=== PATIENT | male | born 1940 | race Caucasian/White ===

== ENCOUNTER 2017-03-21 12:16 | Emergency (ER) | payer MEDICARE, OTHER ==
[2017-03-21 12:27] VITALS: BP 142/74
[2017-03-21] MEDS ORDERED: Sodium Chloride 0.9% 10 ML Syringe FLUSH PRN (12:58)
--- NOTE | 2017-03-21 13:46 | CR ---
Pelvis and left hip: AP view of the pelvis was obtained as well as AP and lateral views of the left hip. Angulated intertrochanteric fracture is seen within the left hip. Mild joint space narrowing is seen within both hips, worse on the right side. Disc space narrowing is noted within the lower lumbar spine. Sacroiliac joints are within normal limits. No acute fracture or other abnormality is seen. Impression: 1. Angulated intertrochanteric fracture within the left hip. 2. Degenerative change as noted above. Diagnostic code #3
[2017-03-21] MEDS ORDERED: HYDROmorphone 0.5 MG/0.5 ML Syringe IVPUSH ONE (13:54)
--- NOTE | 2017-03-21 15:13 | EDM.PDOC ---
ED HPI GENERAL MEDICAL PROBLEM - General Chief Complaint: Lower Extremity Injury/Pain Stated Complaint: [facility] Time Seen by Provider: 03/21/17 12:22 Source of Information: Reports: Patient, RN Notes Reviewed - History of Present Illness INITIAL COMMENTS - FREE TEXT/NARRATIVE: 76-year-old male comes in by ambulance for evaluation of severe left hip pain status post fall. 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 He states it was just a three- step difference in height. He thought he was on the first step but actually he was on the second or third so when he stepped down he lost his balance falling onto his left hip. He had severe pain immediately left hip with inability to move the leg at the hip joint without even more severe discomfort. He denies head neck chest back or other pain or injury from this incident. Due to severity of pain and severe anxiety he was given 10 mg morphine and route by parlor maid. The pain on arrival to ED is more tolerable but still severe with any type of motion of the left extremity at the left hip joint. He does have a long standing smoking history having smoked since age 17 which puts him at about 59 years of smoking. However he states of packed now last 2-3 days. He does have somewhat of a chronic cough associated with that. Current chest pain or difficulty breathing. Treatments STORES ASSISTANT: Reports: Other Medication(s) Left Hip Pain Score (Numeric/FACES): 7 - Related Data Allergies Allergy/AdvReac Type Severity Reaction Status Date / Time No Known Allergies Allergy Verified 03/21/17 12:21 Home Meds: Home Meds Multivitamin [Multivitamins] 1 cap PO DAILY 12/05/14 [History] Naproxen Sodium [Aleve] 440 mg PO DAILY 12/05/14 [History] Past Medical History HEENT History: Reports: Hard of Hearing Genitourinary History: Reports: Prostate Disorder Other Musculoskeletal History: back surgery - Past Surgical History HEENT Surgical History: Reports: Eye Surgery GI Surgical History: Reports: Appendectomy Other Musculoskeletal Surgeries/Procedures:: knee pain Social & Family History - Tobacco Use Smoking Status *Q: Current Every Day Smoker Years of Tobacco use: 50 Packs/Tins Daily: 0.6 - Caffeine Use Caffeine Use: Reports: Coffee - Recreational Drug Use Recreational Drug Use: No Review of Systems - Review of Systems Review Of Systems: See Below Constitutional: Denies: Chills, Fever Eyes: Reports: No Symptoms Ears: Reports: No Symptoms Nose: Reports: No Symptoms Mouth/Throat: Reports: No Symptoms Respiratory: Reports: Shortness of Breath (Moderate at the time of his fall). Denies: Pleuritic Chest Pain Cardiovascular: Denies: Chest Pain GI/Abdominal: Denies: Abdominal Pain, Nausea, Vomiting Musculoskeletal: Reports: Joint Pain (Left hip). Denies: Neck Pain, Shoulder Pain, Arm Pain, Back Pain Skin: Reports: No Symptoms Neurological: Denies: Numbness, Tingling, Trouble Speaking, Weakness ED EXAM, GENERAL - Physical Exam Exam: See Below General Appearance: Alert, Mild Distress (Has recently had 10 mg morphine IV in route to the hospital) Eye Exam: Bilateral Eye: PERRL Throat/Mouth: Normal Inspection Head: Atraumatic. No: Facial Swelling Neck: Supple, Full Range of Motion Respiratory/Chest: No Respiratory Distress, Lungs Clear, Normal Breath Sounds Cardiovascular: Bradycardia GI/Abdominal: Soft, Non-Tender. No: Guarding Extremities: Normal Inspection, Normal Range of Motion Neurological: Alert, Oriented, No Motor/Sensory Deficits Skin Exam: Warm, Dry, Normal Color EKG INTERPRETATION EKG Date: 03/21/17 Rhythm: Other Rate (Beats/Min): 54 [place]: Normal P-Wave: Present QRS: Normal ST-T: Normal Course - Vital Signs Last Recorded V/S: Last Vital Signs Temp 98.7 F 03/21/17 12:21 Pulse 55 L 03/21/17 12:21 Resp 18 03/21/17 12:21 BP 142/74 H 03/21/17 12:21 Pulse Ox 99 03/21/17 12:21 - Orders/Labs/Meds Labs: Laboratory Tests 03/21/17 03/21/17 Range/Units 13:19 13:19 WBC 14.44 H (4.23-9.07) K/mm3 RBC 3.68 L (4.63-6.08) M/mm3 Hgb 12.9 L (13.7-17.5) gm/L Hct 37.5 L (40.1-51.0) % MCV 101.9 H (79.0-92.2) fl MCH 35.1 H (25.7-32.2) pg MCHC 34.4 (32.2-35.5) g/dl RDW Std Deviation 47.2 H (35.1-43.9) fL Plt Count 327 (163-337) K/mm3 MPV 8.9 L (9.4-12.3) fl Neut % (Auto) 78.0 H (34.0-67.9) % Lymph % (Auto) 9.1 L (21.8-53.1) % [place] % (Auto) 11.1 (5.3-12.2) % Eos % (Auto) 1.2 (0.8-7.0) Baso % (Auto) 0.3 (0.1-1.2) % Neut # (Auto) 11.25 H (1.78-5.38) K/mm3 Lymph # (Auto) 1.31 L (1.32-3.57) K/mm3 [place] # (Auto) 1.61 H (0.30-0.82) K/mm3 Eos # (Auto) 0.18 (0.04-0.54) K/mm3 Baso # (Auto) 0.04 (0.01-0.08) K/mm3 Manual Slide Review Normal smear Sodium 139 (136-145) mEq/L Potassium 3.9 (3.5-5.1) mEq/L Chloride 105 (98-107) mEq/L Carbon Dioxide 25 (21-32) mEq/L Anion Gap 12.9 (5-15) BUN 13 (7-18) mg/dL Creatinine 0.8 (0.7-1.3) mg/dL Est Cr Clr Drug Dosing 71.66 mL/min Estimated GFR (MDRD) > 60 (>60) mL/min BUN/Creatinine Ratio 16.3 (14-18) Glucose 93 (83-115) mg/dL Calcium 8.8 (8.5-10.1) mg/dL Total Bilirubin 0.5 (0.2-1.0) mg/dL AST 18 (15-37) U/L ALT 19 (16-63) U/L Alkaline Phosphatase 77 (46-116) U/L Total Protein 6.2 L (6.4-8.2) g/dl Albumin 3.5 (3.4-5.0) g/dl Globulin 2.7 gm/dL Albumin/Globulin Ratio 1.3 (1-2) Meds: Medications Discontinued Medications Generic Name Dose Route Start Last Admin Trade Name Freq PRN Reason Stop Dose Admin Hydromorphone HCl 0.5 mg 03/21/17 13:54 03/21/17 13:59 Dilaudid IVPUSH 03/21/17 13:55 0.5 mg ONETIME ONE Administration Sodium Chloride 10 ml 03/21/17 12:58 03/21/17 14:00 Saline Flush FLUSH 10 ml ASDIRECTED PRN Administration Keep Vein Open - Re-Assessments/Exams Free Text/Narrative Re-Assessment/Exam: 03/21/17 16:00. Discussed with Dr. Castro, Orthopedist. He does accept the patient to come in for surgical repair. He would like to have this patient admitted by Hospitalist due to 59 year smoking history. Labs are OK, CXR does show some hyperinflation, scattered fibrotic changes. Have discussed with Dr Hurt, Hospitalist. 03/21/17 16:45. Have been notified charge nurse that family is requesting patient be transferred to [facility] due to patient's underlying lung disease, surgical risk associated with that and no multi specialty backup available at this hospital. 03/21/17 16:58. Have discussed with Dr Flores, [facility] accepts patient in transfer, will transfer by ground ambulance. 03/22/17 17:39 Departure - Departure Time of Disposition: 15:20 Disposition: DC/Tfer to Acute Hospital 02 Clinical Impression: Intertrochanteric fracture, hip, COPD (chronic obstructive pulmonary disease) - Discharge Information Referrals: Yomi Suresh MD [Primary Care Provider] - Forms: ED Department Discharge
--- NOTE | 2017-03-21 16:25 | CR ---
Chest: Portable view of the chest was obtained. Comparison: Prior chest x-ray of 12/05/14. Heart size is normal. Mild tortuosity of the thoracic aorta is seen. Lungs show no acute parenchymal densities. Bony structures are osteopenic. Impression: 1. Nothing acute is appreciated on two-view chest x-ray. Diagnostic code #2
--- NOTE | 2017-03-22 06:40 | CONS ---
CONSULTING PHYSICIAN: Missael Castro MD DATE OF CONSULTATION: 03/21/2017 HISTORY OF PRESENT ILLNESS: This is an orthopedic evaluation called by Medical for evaluation of severe left hip pain. The patient was at his home when he suffered a fall with injury to the left hip itself. The patient after the fall had severe pain, was unable to walk on the left lower extremity, was brought into the emergency room and evaluated. In the emergency room, the patient's evaluation was with x-rays and was found to have a fracture of the left hip, and the patient was then scheduled for admission to the hospital and orthopedic evaluation for possible surgical intervention. PAST MEDICAL HISTORY: ALLERGIES: No known drug allergy. MEDICATIONS: The patient has been on minimal medication treatment program that included Naprosyn and multivitamins. The patient has been healthy. SURGICAL HISTORY: Noncontributory. REVIEW OF SYSTEMS: HEAD, EYES, EARS, NOSE, AND THROAT: Normocephalic. CHEST: Notes no chest cold at this time. Chest has been clear with no upper respiratory problems. COR: Heart has been stable. ABDOMEN: Soft. No indication of any infection-type problems, and the patient has had no previous hip injury. PHYSICAL EXAMINATION: GENERAL: On admission and evaluation, shows a well-developed, well-nourished 76- year-old male, in [id number] distress. HEAD, EYES, EARS, NOSE, AND THROAT: Normocephalic. NECK: Supple. CHEST: Clear. COR: Regular rate. ABDOMEN: Soft. : Intact. MUSCULOSKELETAL: Examination of the left hip reveals severe pain on any type of pressure or palpation over the hip area. Positive external rotation of the hip noted. The circulation and neurological status are intact distally. IMAGING: X-rays reviewed which shows a comminuted shortened intertrochanteric and subtrochanteric fracture of the left hip. PLAN: The plan is for the patient to undergo surgical stabilization with the intramedullary madeleine, reconstruction-type madeleine, for stabilization of this severe fracture. KIKO /[id number]
== END 2017-03-21 17:54 ==
LOC: JD.ED 12:16
DX: S72.142A Displaced intertrochanteric fracture of left femur, initial encounter for closed fracture (principal); J44.9 Chronic obstructive pulmonary disease, unspecified; F17.210 Nicotine dependence, cigarettes, uncomplicated; Z79.899 Other long term (current) drug therapy; W17.89XA Other fall from one level to another, initial encounter
CPT/HCPCS: 36415; 71045; 73502; 80053; 85025; 93005; 96374; 99285; J1170; J7050; 93010

== ENCOUNTER 2020-07-31 11:32 | Emergency (ER) | payer MEDICARE, OTHER ==
--- NOTE | 2020-07-31 12:19 | EDM.PDOC ---
ED HPI GENERAL MEDICAL PROBLEM - General Chief Complaint: ENT Problem Stated Complaint: FEVER/FACE SWOLLEN/DENTAL COMPLAINT Time Seen by Provider: 07/31/20 11:53 Source of Information: Reports: Patient, Family (daughter/), RN Notes Reviewed History Limitations: Reports: No Limitations - History of Present Illness INITIAL COMMENTS - FREE TEXT/NARRATIVE: Patient is a 79-year-old male who presents to the ER for evaluation of a dental complaint. Patient states that since this Sunday/, he has had some pain to his left lower jaw, and is thought that he has had issues with a tooth. He started developing some facial/neck swelling last night, and has gotten worse today. He had a fever as high as 101.2 F at the walk-in clinic, so they sent him to the ER for evaluation. Patient states he has not had any fevers at home. He is having no cough, shortness of breath, or any sort of nausea/vomiting/diarrhea. Patient reports that he has a long history of dental issues. He notes that he tried to call around to a dentist on Sunday but was unable to get in. He has been using leftover oxycodone tablets from prior surgeries, his last dose at around 5 AM this morning. He is also stating that he took some [id number] ibuprofen, this does not seem to help much at all again last dosing was at around 5 AM. - Related Data Allergies Allergy/AdvReac Type Severity Reaction Status Date / Time No Known Allergies Allergy Verified 07/31/20 12:04 Home Meds: Home Meds Multivitamin [Multivitamins] 1 cap PO DAILY 12/05/14 [History] Naproxen Sodium [Aleve] 440 mg PO DAILY 12/05/14 [History] Acetaminophen/oxyCODONE [Percocet 325-5 MG] 1 tab PO Q6H #12 tab 07/31/20 [Rx] Amoxicillin/Clavulanate K [Augmentin 875-125 MG] 1 tab PO BID #14 tablet 07/31/20 [Rx] Aspirin 1 mg PO DAILY 07/31/20 [History] Folic Acid 1 mg PO DAILY 07/31/20 [History] oxyCODONE HCl/Acetaminophen [Oxycodone-Acetaminophen 5-325] 5 - 325 mg PO QID PRN 07/31/20 [History] traMADol [Ultram] 50 mg PO QID PRN 07/31/20 [History] Past Medical History HEENT History: Reports: Hard of Hearing Genitourinary History: Reports: Prostate Disorder Other Musculoskeletal History: back surgery Neurological History: Reports: Migraines - Infectious Disease History Infectious Disease History: Reports: Chicken Pox - Past Surgical History HEENT Surgical History: Reports: Eye Surgery GI Surgical History: Reports: Appendectomy Other Musculoskeletal Surgeries/Procedures:: knee pain Social & Family History - Tobacco Use Tobacco Use Status *Q: Current Every Day Tobacco User Years of Tobacco use: 50 Packs/Tins Daily: 1 - Caffeine Use Caffeine Use: Reports: Coffee - Recreational Drug Use Recreational Drug Use: No ED ROS ENT - Review of Systems Review Of Systems: Comprehensive ROS is negative, except as noted in HPI. ED EXAM, ENT - Physical Exam Exam: See Below Exam Limited By: No Limitations General Appearance: Alert, WD/WN, No Apparent Distress Eye Exam: Bilateral Eye: EOMI, Normal Inspection, PERRL Mouth/Throat: Normal Inspection, Normal Gums, Normal Lips, Dental Pain (to left lower jaw) Head: Atraumatic, Normocephalic Neck: Normal Inspection, Supple, Full Range of Motion, Lymphadenopathy (R), Oth er (left lower mandible tenderness). No: Lymphadenopathy (L) Respiratory/Chest: No Respiratory Distress, Lungs Clear, Normal Breath Sounds, No Accessory Muscle Use, Chest Non-Tender Cardiovascular: Normal Peripheral Pulses, Regular Rate, Rhythm, No Edema GI/Abdominal: Normal Bowel Sounds, Soft, Non-Tender, No Distention, No Mass Extremities: Normal Inspection, Normal Capillary Refill Neurological: Alert, Oriented, Normal Cognition, No Motor/Sensory Deficits Psychiatric: Normal Affect, Normal Mood Skin: Warm, Dry, Intact, Normal Color, No Rash Course - Vital Signs Last Recorded V/S: Last Vital Signs Temp 99.2 F 07/31/20 11:54 Pulse 81 07/31/20 11:54 Resp 22 H 07/31/20 11:54 BP Pulse Ox 96 07/31/20 11:54 - Orders/Labs/Meds Orders: Active Orders 24 hr Category Date Time Status Peripheral IV Care [RC] . DIRECTED Care 07/31/20 12:20 Ordered CULTURE BLOOD [BC] Stat Lab 07/31/20 12:35 Ordered Sodium Chloride 0.9% [Saline Flush] Med 07/31/20 12:20 Ordered 10 ml FLUSH ASDIRECTED PRN Peripheral IV Insertion Adult [OM.PC] Routine Oth 07/31/20 12:19 Ordered Medication Orders Sodium Chloride (Sodium Chloride 0.9% 10 Ml Syringe) 10 ml FLUSH ASDIRECTED PRN PRN Reason: Keep Vein Open Last Admin: 07/31/20 12:58 Dose: 10 ml Documented by: YULIANA Labs: Laboratory Tests 07/31/20 07/31/20 Range/Units 12:30 12:30 WBC 14.34 H (4.23-9.07) K/mm3 RBC 4.12 L (4.63-6.08) M/mm3 Hgb 14.3 (13.7-17.5) gm/dl Hct 42.5 (40.1-51.0) % MCV 103.2 H (79.0-92.2) fl MCH 34.7 H (25.7-32.2) pg MCHC 33.6 (32.2-35.5) g/dl RDW Std Deviation 47.0 H (35.1-43.9) fL Plt Count 343 H (163-337) K/mm3 MPV 8.9 L (9.4-12.3) fl Neut % (Auto) 88.8 H (34.0-67.9) % Lymph % (Auto) 5.2 L (21.8-53.1) % [place] % (Auto) 5.2 L (5.3-12.2) % Eos % (Auto) 0.3 L (0.8-7.0) Baso % (Auto) 0.2 (0.1-1.2) % Neut # (Auto) 12.74 H (1.78-5.38) K/mm3 Lymph # (Auto) 0.74 L (1.32-3.57) K/mm3 [place] # (Auto) 0.74 (0.30-0.82) K/mm3 Eos # (Auto) 0.05 (0.04-0.54) K/mm3 Baso # (Auto) 0.03 (0.01-0.08) K/mm3 Manual Slide Review Abnormal smear Sodium 133 L (136-145) mEq/L Potassium 4.5 (3.5-5.1) mEq/L Chloride 95 L (98-107) mEq/L Carbon Dioxide 27 (21-32) mEq/L Anion Gap 15.5 H (5-15) BUN 9 (7-18) mg/dL Creatinine 0.8 (0.7-1.3) mg/dL Est Cr Clr Drug Dosing 70.75 mL/min Estimated GFR (MDRD) > 60 (>60) mL/min BUN/Creatinine Ratio 11.3 L (14-18) Glucose 95 (70-99) mg/dL Calcium 9.0 (8.5-10.1) mg/dL Total Bilirubin 0.8 (0.2-1.0) mg/dL AST 22 (15-37) U/L ALT 21 (16-63) U/L Alkaline Phosphatase 104 (46-116) U/L Total Protein 7.8 (6.4-8.2) g/dl Albumin 4.2 (3.4-5.0) g/dl Globulin 3.6 gm/dL Albumin/Globulin Ratio 1.2 (1-2) Meds: Medications Generic Name Dose Route Start Last Admin Trade Name Sabrina PRN Reason Stop Dose Admin Sodium Chloride 10 ml 07/31/20 12:20 07/31/20 12:58 Sodium Chloride 0.9% 10 Ml Syringe FLUSH 10 ml ASDIRECTED PRN Administration Keep Vein Open Discontinued Medications Generic Name Dose Route Start Last Admin Trade Name Sabrina PRN Reason Stop Dose Admin Hydromorphone HCl 1 mg 07/31/20 12:20 07/31/20 12:42 Hydromorphone 1 Mg/Ml Syringe IVPUSH 07/31/20 12:21 1 mg ONETIME ONE Administration Clindamycin Phosphate 900 mg/ 50 mls @ 100 mls/hr 07/31/20 12:20 07/31/20 12:50 Premix IV 07/31/20 12:49 100 mls/hr ONETIME ONE Administration Ketorolac Tromethamine 30 mg 07/31/20 12:21 07/31/20 12:41 Ketorolac 30 Mg/Ml Sdv IVPUSH 07/31/20 12:22 30 mg ONETIME ONE Administration - Re-Assessments/Exams Free Text/Narrative Re-Assessment/Exam: 07/31/20 12:24 Patient presents to the ER for his dental complaint, we will get an IV started get some basic labs, give him some IV antibiotics, and some pain meds for initial management. 07/31/20 13:27 Labs have been obtained, patient's white cell count is elevated at 14.34, with 88% neutrophils. Metabolic panel essentially unremarkable, I did reassess the patient at bedside, he is resting comfortably at this time. Family feels comfortable taking him home and trying oral antibiotics and pain medication over the next few days. They will be called if blood cultures come back positive. Departure - Departure Time of Disposition: 13:28 Disposition: Home, Self-Care 01 Condition: Good Clinical Impression: Dental abscess - Discharge Information *PRESCRIPTION DRUG MONITORING PROGRAM REVIEWED*: Yes *COPY OF PRESCRIPTION DRUG MONITORING REPORT IN PATIENT REMI: No Instructions: Dental Abscess, [id number] Referrals: Yomi Suresh MD [Primary Care Provider] - Forms: ED Department Discharge Additional Instructions: You have been evaluated in the ED for your dental pain. You have been provided with a script for Augmentin Please take this medication as directed. (1 tab BID for 7 days or until gone). Please note this antibiotic can take up to 48 hours to provide coverage. You were given IV antibiotics while being in the ER, this should hopefully speed up the results of the antibiotic coverage.This antibiotic can cause diarrhea, recommend that you start a probiotic while taking this medication. You were given a prescription for a strong pain medication, oxycodone/acetaminophen 5/25 mg, please take 1 tab every 6 hours as needed for pain not relieved by Tylenol or Aleve alone. Please note this medication does contain Tylenol in it, so do not take more than 4000 mg in a 24-hour time span. These medications can be addictive, so please take as few as possible to achieve adequate pain control. These meds can also be quite constipating, recommend that you increase your oral fluid intake and take a stool softener like MiraLAX while taking these medications. Do not drive while taking this medication. This medication was electronically sent to the [place] pharmacy located in the [employer] [facility]. You may use hot pack/ ice packs to the affected area as tolerated in 15-20 minute intervals. You will ultimately need to find a dentist to provide definitive management of your dental pain. Laboratory evaluation was taken today, and a single blood culture was obtained, this is to make sure that the bacteria has not spread into the bloodstream. This takes 24 hours to result, so you will be called tomorrow if the results are positive, and further discussions will be needed to decide if you need hospital mission versus other. This is only if the culture is positive however. If you not hear from us, please assume that everything is okay, and continue with the plan as outlined above. Please return to the ED if your symptoms change or worsen. Sepsis Event Note (ED) - Evaluation Sepsis Screening Result: Possible Sepsis Risk - Focused Exam Vital Signs: Vital Signs Temp Pulse Resp Pulse Ox 07/31/20 11:54 99.2 F 81 22 H 96 - My Orders Last 24 Hours: My Active Orders 07/31/20 12:19 Peripheral IV Insertion Adult [OM.PC] Routine 07/31/20 12:20 Peripheral IV Care [RC] . DIRECTED Sodium Chloride 0.9% [Saline Flush] 10 ml FLUSH ASDIRECTED PRN 07/31/20 12:35 CULTURE BLOOD [BC] Stat - Assessment/Plan Last 24 Hours: My Active Orders 07/31/20 12:19 Peripheral IV Insertion Adult [OM.PC] Routine 07/31/20 12:20 Peripheral IV Care [RC] . DIRECTED Sodium Chloride 0.9% [Saline Flush] 10 ml FLUSH ASDIRECTED PRN 07/31/20 12:35 CULTURE BLOOD [BC] Stat
[2020-07-31] MEDS ORDERED: Sodium Chloride 0.9% 10 ML Syringe FLUSH PRN (12:20)
[2020-07-31] MEDS ORDERED: HYDROmorphone 1 MG/ML Syringe IVPUSH ONE (12:20)
[2020-07-31] MEDS ORDERED: Clindamycin Phosphate in D5W 900 MG in Premix Bag 1 BAG IV ONE ×2 (12:20)
[2020-07-31] MEDS ORDERED: Ketorolac 30 MG/ML SDV IVPUSH ONE (12:21)
[2020-07-31] MEDS ORDERED: Acetaminophen 325 MG Tab PO ONE (13:48)
[2020-07-31 14:33] VITALS: BP 105/59; PULSE 73
== END 2020-07-31 14:02 | disposition home or self-care (01) ==
LOC: JD.ED 11:32
DX: K04.7 Periapical abscess without sinus (principal); Z72.0 Tobacco use
CPT/HCPCS: 36415; 80053; 85025; 87040; 96365; 96375; 99284; A9270; J1170; J1885; J3490; 87076; 87181; 99283

== ENCOUNTER 2021-08-26 15:04 | Emergency (ER) | payer MEDICARE, OTHER ==
[2021-08-26 15:22] VITALS: BP 148/82; PULSE 98
== END 2021-08-26 16:29 | disposition home or self-care (01) ==
LOC: JD.ED 15:04
DX: S82.831A Other fracture of upper and lower end of right fibula, initial encounter for closed fracture (principal); Z79.899 Other long term (current) drug therapy; W17.89XA Other fall from one level to another, initial encounter
CPT/HCPCS: 73610-26-RT; 73610-RT; 99283-25

== ENCOUNTER 2021-11-17 09:52 | Emergency (ER) | payer MEDICARE, OTHER ==
[2021-11-17 10:07] VITALS: BP 134/70; PULSE 72
[2021-11-17] MEDS ORDERED: Acetaminophen/HYDROcodone 325-5 MG Tab PO ONE (10:48)
== END 2021-11-17 11:47 | disposition home or self-care (01) ==
LOC: JD.ED 09:52
DX: S50.311A Abrasion of right elbow, initial encounter (principal); M17.11 Unilateral primary osteoarthritis, right knee; Z79.899 Other long term (current) drug therapy; Z79.82 Long term (current) use of aspirin; Z90.49 Acquired absence of other specified parts of digestive tract; W01.198A Fall on same level from slipping, tripping and stumbling with subsequent striking against other object, initial encounter
CPT/HCPCS: 73564; 99283; A9270